=== PATIENT | female | born 1990 | race Caucasian/White ===

== ENCOUNTER 2018-02-17 16:52 | Outpatient (CLI) | payer OTHER | END 2018-02-17 19:00 | disposition home or self-care (01) | LOC: OBT 16:52 → L-D 16:53 → OBT 19:00 | DX: O26.892 Other specified pregnancy related conditions, second trimester (principal); Z3A.28 28 weeks gestation of pregnancy; R20.0 Anesthesia of skin | CPT/HCPCS: Z7500 ==

== ENCOUNTER 2018-03-11 10:30 | Inpatient (IN) | payer OTHER ==
[2018-03-11 12:30] LABS: ADD UMIC YES; UR AMORPHOUS CRYSTAL FEW /HPF (NONE SEEN); UR ASCORBIC ACID NEGATIVE (NEGATIVE); UR BACTERIA FEW /HPF (NONE SEEN); UR BILIRUBIN (Dip) NEGATIVE (NEGATIVE); UR BLOOD (Dip) NEGATIVE (NEGATIVE); UR CLARITY SLIGHTLY CLOUDY (CLEAR); UR COLOR YELLOW (YELLOW); UR GLUCOSE (Dip) NEGATIVE (NEGATIVE); UR KETONES (Dip) NEGATIVE (NEGATIVE); UR LEUKOCYTE ESTERASE (Dip) 1+ Leu/ul (NEGATIVE); UR MUCUS FEW /HPF (NONE SEEN); UR NITRITE (Dip) NEGATIVE (NEGATIVE); UR RBC 2 /HPF (0-5); UR SPECIFIC GRAVITY (Dip) 1.015 (1.003-1.030); UR SQUAMOUS EPITHELIAL CELL FEW /HPF (FEW); UR TOTAL PROTEIN (Dip) 3+ mg/dl (NEGATIVE); UR UROBILINOGEN (Dip) NEGATIVE (NEGATIVE); UR WBC 9 /HPF (0-5)
[2018-03-11] MEDS ORDERED: ACETAMINOPHEN 325 MG TAB PO (12:30)
[2018-03-11 12:38] LABS: ADD MAN DIFF? NO
[2018-03-11 12:41] LABS: WHITE BLOOD COUNT 8.3 10^3/ul (4.8-10.8)
[2018-03-11 12:41] LABS: ABNORMAL IP MESSAGE 1; BASOPHILS % 0.4 % (0.0-2.0); EOSINOPHILS % 0.5 % (0.0-7.0); HEMATOCRIT 36.7 % (37.0-47.0); HEMOGLOBIN 12.6 g/dl (12.0-16.0); LYMPHOCYTES % 24.5 % (15.0-51.0); MEAN CORPUSCULAR HEMOGLOBIN 32.6 pg (29.0-33.0); MEAN CORPUSCULAR HGB CONC 34.3 g/dl (32.0-37.0); MEAN CORPUSCULAR VOLUME 95.1 fl (82.0-101.0); MEAN PLATELET VOLUME 13.3 fl (7.4-10.4); MONOCYTE # 0.5 10^3/ul (0.3-0.9); MONOCYTES % 5.6 % (0.0-11.0); NEUTROPHIL # 5.7 10^3/ul (1.6-7.5); NEUTROPHILS % 68.4 % (39.0-77.0); PLATELET COUNT 118 10^3/UL (140-415); RED BLOOD COUNT 3.86 10^6/ul (4.20-5.40); RED CELL DISTRIBUTION WIDTH 12.9 % (11.5-14.5)
[2018-03-11 12:43] LABS: POSITIVE DIFF @See below
[2018-03-11 12:57] LABS: ALANINE AMINOTRANSFERASE 42 IU/L (13-69); ALBUMIN 3.1 g/dl (3.3-4.9); ALBUMIN/GLOBULIN RATIO 1.03; ALKALINE PHOSPHATASE 192 IU/L (42-121); ANION GAP 9 (8-16); ASPARTATE AMINO TRANSFERASE 32 IU/L (15-46); BILIRUBIN,INDIRECT 0.3 mg/dl (0-1.1); BILIRUBIN,TOTAL 0.3 mg/dl (0.2-1.3); BLOOD UREA NITROGEN 9 mg/dl (7-20); CALCIUM 8.6 mg/dl (8.4-10.2); CARBON DIOXIDE 22 mmol/L (21-31); CHLORIDE 110 mmol/L (97-110); CREATININE 0.59 mg/dl (0.44-1.00); GLUCOSE 73 mg/dl (70-220); POTASSIUM 4.1 mmol/L (3.5-5.1); SODIUM 137 mmol/L (135-144); TOTAL PROTEIN 6.1 g/dl (6.1-8.1); URIC ACID 5.5 mg/dl (3.1-7.9)
[2018-03-11 13:15] LABS: PARTIAL THROMBOPLASTIN TIME 26.8 Sec (25.0-35.0)
[2018-03-11 13:27] LABS: INR 0.93; PROTIME 12.6 Sec (11.9-14.9)
[2018-03-11] MEDS: ACCU-CHEK XX ×3 (13:30→22:26)
[2018-03-11] MEDS: BETAMET NA PHOS/AC(6 MG/ML) 5ML INJ IM (13:34)
[2018-03-11] MEDS: INSULIN ASPART [NOVOLOG] 3 ML PEN SC ×3 (17:30→20:13)
[2018-03-11] MEDS ORDERED: GLUCAGON 1 MG INJ IM ×2 (17:30)
[2018-03-11] MEDS ORDERED: DEXTROSE 50% 50 ML SYRINGE IV ×4 (17:30)
[2018-03-11] MEDS ORDERED: GLUCOSE GEL 15 GRAM TUBE PO ×4 (17:30)
[2018-03-11] MEDS ORDERED: GLUCOSE GEL 15 GRAM TUBE BUCCAL ×2 (17:30)
[2018-03-12] MEDS ORDERED: CARBOPROST 250 MCG INJ (07:00)
[2018-03-12] MEDS: ACCU-CHEK XX ×7 (08:10→22:08)
[2018-03-12] MEDS: PRENATAL VITAMIN PO (08:53)
[2018-03-12] MEDS: LACTATED RINGER'S 1,000 ML IV ×2 (10:31→17:40)
[2018-03-12 11:21] LABS: COLLECTION PERIOD 24 hrs
[2018-03-12] MEDS: INSULIN ASPART [NOVOLOG] 3 ML PEN SC ×2 (11:30→17:49)
[2018-03-12 11:50] LABS: COLLECTION PERIOD 24 hrs; SCRET 0.59 mg/dl (0.44-1.00); VOLUME 1325 ml/24hrs; VOLUME 1325 mls
[2018-03-12 11:59] LABS: CREATININE CLEARANCE 122.8 mls/min (84.0-162.0); CREATININE,URINE RANDOM 78.72 mg/dl (20-320)
[2018-03-12] MEDS: BETAMET NA PHOS/AC(6 MG/ML) 5ML INJ IM (12:33)
[2018-03-12 14:00] LABS: ADD MAN DIFF? NO
[2018-03-12 14:02] LABS: WHITE BLOOD COUNT 14.3 10^3/ul (4.8-10.8)
[2018-03-12 14:02] LABS: ABNORMAL IP MESSAGE 1; BASOPHILS % 0.1 % (0.0-2.0); HEMATOCRIT 38.4 % (37.0-47.0); LYMPHOCYTES # 2.2 10^3/ul (0.8-2.9); LYMPHOCYTES % 15.1 % (15.0-51.0); MEAN CORPUSCULAR HGB CONC 33.9 g/dl (32.0-37.0); MEAN CORPUSCULAR VOLUME 94.6 fl (82.0-101.0); MEAN PLATELET VOLUME 13.2 fl (7.4-10.4); MONOCYTE # 0.8 10^3/ul (0.3-0.9); MONOCYTES % 5.3 % (0.0-11.0); NEUTROPHIL # 11.2 10^3/ul (1.6-7.5); NEUTROPHILS % 78.2 % (39.0-77.0); NUCLEATED RED BLOOD CELLS # 0.1 10^3/ul (0.0-0.0); NUCLEATED RED BLOOD CELLS% 0.5 /100WBC (0.0-0.0); PLATELET COUNT 143 10^3/UL (140-415); RED BLOOD COUNT 4.06 10^6/ul (4.20-5.40); RED CELL DISTRIBUTION WIDTH 12.8 % (11.5-14.5)
[2018-03-12 14:03] LABS: POSITIVE DIFF @See below
[2018-03-13] MEDS: LACTATED RINGER'S 1,000 ML IV ×3 (01:11→17:10)
[2018-03-13] MEDS: INSULIN ASPART [NOVOLOG] 3 ML PEN SC ×3 (07:30→17:30)
[2018-03-13] MEDS: ACCU-CHEK XX ×8 (08:10→21:05)
[2018-03-13] MEDS: PRENATAL VITAMIN PO (09:32)
[2018-03-13 15:06] LABS: ADD MAN DIFF? NO
[2018-03-13 15:08] LABS: WHITE BLOOD COUNT 14.8 10^3/ul (4.8-10.8)
[2018-03-13 15:08] LABS: BASOPHILS % 0.3 % (0.0-2.0); EOSINOPHILS % 0.1 % (0.0-7.0); HEMATOCRIT 33.6 % (37.0-47.0); HEMOGLOBIN 11.3 g/dl (12.0-16.0); LYMPHOCYTES # 2.1 10^3/ul (0.8-2.9); LYMPHOCYTES % 14.2 % (15.0-51.0); MEAN CORPUSCULAR HEMOGLOBIN 32.4 pg (29.0-33.0); MEAN CORPUSCULAR HGB CONC 33.6 g/dl (32.0-37.0); MEAN CORPUSCULAR VOLUME 96.3 fl (82.0-101.0); MONOCYTES % 6.4 % (0.0-11.0); NEUTROPHILS % 74.5 % (39.0-77.0); NUCLEATED RED BLOOD CELLS # 0.1 10^3/ul (0.0-0.0); NUCLEATED RED BLOOD CELLS% 0.6 /100WBC (0.0-0.0); PLATELET COUNT 129 10^3/UL (140-415); RED BLOOD COUNT 3.49 10^6/ul (4.20-5.40); RED CELL DISTRIBUTION WIDTH 13.4 % (11.5-14.5)
[2018-03-13 15:25] LABS: ALANINE AMINOTRANSFERASE 36 IU/L (13-69); ALBUMIN 2.9 g/dl (3.3-4.9); ALKALINE PHOSPHATASE 161 IU/L (42-121); ANION GAP 14 (8-16); ASPARTATE AMINO TRANSFERASE 23 IU/L (15-46); BILIRUBIN,INDIRECT 0.1 mg/dl (0-1.1); BILIRUBIN,TOTAL 0.1 mg/dl (0.2-1.3); BLOOD UREA NITROGEN 12 mg/dl (7-20); CALCIUM 8.4 mg/dl (8.4-10.2); CARBON DIOXIDE 22 mmol/L (21-31); CHLORIDE 107 mmol/L (97-110); CREATININE 0.68 mg/dl (0.44-1.00); GLUCOSE 110 mg/dl (70-220); POTASSIUM 3.9 mmol/L (3.5-5.1); SODIUM 139 mmol/L (135-144); TOTAL PROTEIN 5.3 g/dl (6.1-8.1); URIC ACID 5.9 mg/dl (3.1-7.9)
[2018-03-14] MEDS: LACTATED RINGER'S 1,000 ML IV ×3 (01:14→22:15)
[2018-03-14] MEDS ORDERED: OXYTOCIN 30 UNITS/LR 500 ML BAG IV (07:00)
[2018-03-14] MEDS: ACCU-CHEK XX ×6 (08:10→19:05)
[2018-03-14] MEDS: INSULIN ASPART [NOVOLOG] 3 ML PEN SC ×3 (09:40→17:30)
[2018-03-14] MEDS: PRENATAL VITAMIN PO (09:42)
[2018-03-14] MEDS: MAGNESIUM SULFATE 4 GM/100 ML 100 ML IVPB (17:30)
[2018-03-14] MEDS: MAGNESIUM SULFATE 20 GM/500 ML 500 ML IV (17:37)
[2018-03-14 17:54] LABS: ADD MAN DIFF? NO
[2018-03-14 17:56] LABS: ABNORMAL IP MESSAGE 1; EOSINOPHILS % 0.1 % (0.0-7.0); HEMATOCRIT 35.1 % (37.0-47.0); NUCLEATED RED BLOOD CELLS # 0.1 10^3/ul (0.0-0.0); NUCLEATED RED BLOOD CELLS% 0.9 /100WBC (0.0-0.0); RED CELL DISTRIBUTION WIDTH 13.2 % (11.5-14.5)
[2018-03-14 18:03] LABS: WHITE BLOOD COUNT 14.6 10^3/ul (4.8-10.8)
[2018-03-14 18:03] LABS: BASOPHIL # 0.1 10^3/ul (0.0-0.1); BASOPHILS % 0.4 % (0.0-2.0); HEMOGLOBIN 11.9 g/dl (12.0-16.0); LYMPHOCYTES # 1.6 10^3/ul (0.8-2.9); LYMPHOCYTES % 10.9 % (15.0-51.0); MEAN CORPUSCULAR HEMOGLOBIN 32.5 pg (29.0-33.0); MEAN CORPUSCULAR HGB CONC 33.9 g/dl (32.0-37.0); MEAN CORPUSCULAR VOLUME 95.9 fl (82.0-101.0); MEAN PLATELET VOLUME 13.7 fl (7.4-10.4); MONOCYTE # 0.7 10^3/ul (0.3-0.9); MONOCYTES % 4.4 % (0.0-11.0); NEUTROPHIL # 11.8 10^3/ul (1.6-7.5); NEUTROPHILS % 80.9 % (39.0-77.0); PLATELET COUNT 102 10^3/UL (140-415); RED BLOOD COUNT 3.66 10^6/ul (4.20-5.40)
[2018-03-14 18:04] LABS: POSITIVE DIFF @See below
[2018-03-14 18:14] LABS: ALANINE AMINOTRANSFERASE 37 IU/L (13-69); ALBUMIN/GLOBULIN RATIO 1.25; ALKALINE PHOSPHATASE 172 IU/L (42-121); ANION GAP 13 (8-16); ASPARTATE AMINO TRANSFERASE 34 IU/L (15-46); BILIRUBIN,INDIRECT 0.2 mg/dl (0-1.1); BILIRUBIN,TOTAL 0.2 mg/dl (0.2-1.3); BLOOD UREA NITROGEN 11 mg/dl (7-20); CALCIUM 8.6 mg/dl (8.4-10.2); CARBON DIOXIDE 24 mmol/L (21-31); CHLORIDE 106 mmol/L (97-110); CREATININE 0.59 mg/dl (0.44-1.00); GLUCOSE 82 mg/dl (70-220); POTASSIUM 3.8 mmol/L (3.5-5.1); SODIUM 139 mmol/L (135-144); TOTAL PROTEIN 5.4 g/dl (6.1-8.1)
[2018-03-14 18:15] LABS: URIC ACID 5.9 mg/dl (3.1-7.9)
[2018-03-14 18:18] LABS: INR 0.87; PROTIME 11.9 Sec (11.9-14.9); PT RATIO 0.9
[2018-03-14 18:19] LABS: PARTIAL THROMBOPLASTIN TIME 22.8 Sec (25.0-35.0)
[2018-03-14] MEDS: CEFAZOLIN 2 GM/50 ML (PMX) 50 ML IVPB (18:30)
[2018-03-14 18:44] LABS: HEPATITIS B SURFACE ANTIGEN NEGATIVE (NEGATIVE)
[2018-03-14] MEDS: FAMOTIDINE 20 MG INJ IV (19:31)
[2018-03-14] MEDS: METOCLOPRAMIDE 10 MG INJ IV (19:31)
[2018-03-14] MEDS: CITRIC ACID/SODIUM CITRATE 15 ML CUP PO (19:31)
[2018-03-14] MEDS ORDERED: FENTAnyl 50 MCG/ML VIAL (20:17)
[2018-03-14] MEDS ORDERED: morphine SULFATE/PF (10 MG/10 ML) INJ (20:17)
[2018-03-14] MEDS ORDERED: BUPIVACAINE 0.75%/DEXT (SPINAL) 2 ML INJ (20:17)
[2018-03-14] MEDS ORDERED: EPHEDrine SULFATE 50 MG/5 ML SYG (20:21)
[2018-03-14] MEDS ORDERED: PHENYLephrine (100 MCG/ML) 10ML SYG (20:21)
[2018-03-14] MEDS ORDERED: DEXAMETHASONE 4 MG/ML 1 ML INJ (20:34)
[2018-03-14] MEDS ORDERED: ONDANSETRON 4 MG INJ (20:34)
[2018-03-14] MEDS ORDERED: LABETALOL HCL 20MG INJ ×3 (20:40→22:44)
[2018-03-14] MEDS ORDERED: MIDAZOLAM 1 MG/ML 2 ML INJ (21:15)
[2018-03-14] MEDS: LABETALOL HCL 20MG INJ IV ×2 (22:15→22:45)
[2018-03-14] MEDS ORDERED: HYDROmorphONE 0.5 MG/0.5 ML SYG IV ×2 (23:30)
[2018-03-14] MEDS ORDERED: DIPHENHYDRAMINE 50 MG INJ IV (23:30)
[2018-03-14] MEDS ORDERED: NALOXONE (0.4 MG/ML) INJ IV (23:30)
[2018-03-14] MEDS ORDERED: ONDANSETRON 4 MG INJ IV (23:30)
[2018-03-14] MEDS ORDERED: NALBUPHINE HCL (10 MG/1 ML) INJ IV (23:30)
[2018-03-15 01:46] LABS: MAGNESIUM 5.6 mg/dl (1.7-2.5)
[2018-03-15] MEDS ORDERED: FUROSEMIDE 40 MG INJ (02:05)
[2018-03-15] MEDS: FUROSEMIDE 40 MG INJ IM (02:10)
[2018-03-15] MEDS: MAGNESIUM SULFATE 20 GM/500 ML 500 ML IV ×3 (03:10→20:15)
[2018-03-15] MEDS: OXYTOCIN 30 UNITS/LR 500 ML IV (04:40)
[2018-03-15 06:44] LABS: MAGNESIUM 6.5 mg/dl (1.7-2.5)
[2018-03-15 08:46] LABS: ADD MAN DIFF? NO
[2018-03-15 08:47] LABS: ABNORMAL IP MESSAGE 1; NUCLEATED RED BLOOD CELLS # 0.2 10^3/ul (0.0-0.0); RED CELL DISTRIBUTION WIDTH 13.2 % (11.5-14.5)
[2018-03-15 09:07] LABS: WHITE BLOOD COUNT 16.8 10^3/ul (4.8-10.8)
[2018-03-15 09:07] LABS: BASOPHILS % 0.2 % (0.0-2.0); HEMATOCRIT 32.6 % (37.0-47.0); HEMOGLOBIN 10.9 g/dl (12.0-16.0); LYMPHOCYTES # 1.1 10^3/ul (0.8-2.9); LYMPHOCYTES % 6.7 % (15.0-51.0); MEAN CORPUSCULAR HGB CONC 33.4 g/dl (32.0-37.0); MEAN CORPUSCULAR VOLUME 95.6 fl (82.0-101.0); MONOCYTE # 0.5 10^3/ul (0.3-0.9); MONOCYTES % 2.9 % (0.0-11.0); NEUTROPHIL # 14.9 10^3/ul (1.6-7.5); NEUTROPHILS % 88.2 % (39.0-77.0); PLATELET COUNT 72 10^3/UL (140-415); RED BLOOD COUNT 3.41 10^6/ul (4.20-5.40)
[2018-03-15 09:20] LABS: POSITIVE DIFF @See below
[2018-03-15] MEDS ORDERED: LANOLIN 7 GM TUBE TOP (10:30)
[2018-03-15] MEDS ORDERED: DIPHENHYDRAMINE 50 MG INJ IV (10:30)
[2018-03-15] MEDS ORDERED: ZOLPIDEM 5 MG TAB PO (10:30)
[2018-03-15] MEDS ORDERED: OXYCODONE/ACETAMINOPHEN (5/325) TAB PO ×2 (10:30)
[2018-03-15] MEDS ORDERED: ONDANSETRON 4 MG INJ IV (10:30)
[2018-03-15] MEDS ORDERED: CARBOPROST 250 MCG INJ IM (10:30)
[2018-03-15] MEDS ORDERED: OXYTOCIN 30 UNITS/LR 500 ML IV (10:30)
[2018-03-15] MEDS ORDERED: MISOPROSTOL 200 MCG TAB PR (10:30)
[2018-03-15 13:33] LABS: ADD MAN DIFF? NO
[2018-03-15 13:34] LABS: WHITE BLOOD COUNT 14.8 10^3/ul (4.8-10.8)
[2018-03-15 13:34] LABS: ABNORMAL IP MESSAGE 1; BASOPHILS % 0.1 % (0.0-2.0); HEMATOCRIT 30.7 % (37.0-47.0); HEMOGLOBIN 10.6 g/dl (12.0-16.0); LYMPHOCYTES # 1.6 10^3/ul (0.8-2.9); LYMPHOCYTES % 10.8 % (15.0-51.0); MEAN CORPUSCULAR HEMOGLOBIN 32.6 pg (29.0-33.0); MEAN CORPUSCULAR HGB CONC 34.5 g/dl (32.0-37.0); MEAN CORPUSCULAR VOLUME 94.5 fl (82.0-101.0); MEAN PLATELET VOLUME 12.8 fl (7.4-10.4); MONOCYTE # 0.7 10^3/ul (0.3-0.9); MONOCYTES % 4.6 % (0.0-11.0); NEUTROPHIL # 12.3 10^3/ul (1.6-7.5); NEUTROPHILS % 83.1 % (39.0-77.0); NUCLEATED RED BLOOD CELLS # 0.1 10^3/ul (0.0-0.0); NUCLEATED RED BLOOD CELLS% 0.7 /100WBC (0.0-0.0); PLATELET COUNT 63 10^3/UL (140-415); RED BLOOD COUNT 3.25 10^6/ul (4.20-5.40); RED CELL DISTRIBUTION WIDTH 13.2 % (11.5-14.5)
[2018-03-15 13:38] LABS: POSITIVE DIFF @See below
[2018-03-15 13:58] LABS: MAGNESIUM 6.9 mg/dl (1.7-2.5)
[2018-03-15] MEDS: LACTATED RINGER'S 1,000 ML IV ×2 (15:10→20:15)
[2018-03-15] MEDS: LABETALOL 100 MG TAB PO ×2 (15:25→21:36)
[2018-03-15 19:12] LABS: ADD MAN DIFF? NO
[2018-03-15 19:14] LABS: WHITE BLOOD COUNT 14.3 10^3/ul (4.8-10.8)
[2018-03-15 19:14] LABS: ABNORMAL IP MESSAGE 1; BASOPHILS % 0.1 % (0.0-2.0); HEMATOCRIT 32.7 % (37.0-47.0); HEMOGLOBIN 11.3 g/dl (12.0-16.0); LYMPHOCYTES # 1.9 10^3/ul (0.8-2.9); LYMPHOCYTES % 13.5 % (15.0-51.0); MEAN CORPUSCULAR HEMOGLOBIN 32.6 pg (29.0-33.0); MEAN CORPUSCULAR HGB CONC 34.6 g/dl (32.0-37.0); MEAN CORPUSCULAR VOLUME 94.2 fl (82.0-101.0); MONOCYTE # 0.7 10^3/ul (0.3-0.9); NEUTROPHIL # 11.4 10^3/ul (1.6-7.5); NEUTROPHILS % 79.9 % (39.0-77.0); NUCLEATED RED BLOOD CELLS # 0.1 10^3/ul (0.0-0.0); NUCLEATED RED BLOOD CELLS% 0.6 /100WBC (0.0-0.0); PLATELET COUNT 77 10^3/UL (140-415); RED BLOOD COUNT 3.47 10^6/ul (4.20-5.40); RED CELL DISTRIBUTION WIDTH 13.2 % (11.5-14.5)
[2018-03-15 19:25] LABS: POSITIVE DIFF @See below
[2018-03-15 19:41] LABS: MAGNESIUM 6.4 mg/dl (1.7-2.5)
[2018-03-15] MEDS: KETOROLAC 30 MG INJ IV (19:55)
[2018-03-15] MEDS: CEFAZOLIN 2 GM/50 ML (PMX) 50 ML IVPB (19:55)
[2018-03-15 20:07] LABS: RAPID PLASMA REAGIN NONREACTIVE (NR)
[2018-03-15] MEDS: SENNA/DOCUSATE NA (8.6MG/50MG) TAB PO (21:36)
[2018-03-16] MEDS: IBUPROFEN 600 MG TAB PO ×4 (00:07→18:00)
[2018-03-16] MEDS: LACTATED RINGER'S 1,000 ML IV ×3 (02:05→18:05)
[2018-03-16] MEDS: OXYTOCIN 30 UNITS/LR 500 ML IV ×6 (04:00→20:00)
[2018-03-16] MEDS: MAGNESIUM SULFATE 20 GM/500 ML 500 ML IV ×2 (05:49→15:49)
[2018-03-16] MEDS: SENNA/DOCUSATE NA (8.6MG/50MG) TAB PO ×2 (09:00→21:57)
[2018-03-16] MEDS: LABETALOL 100 MG TAB PO ×2 (09:00→21:58)
[2018-03-16 13:23] LABS: MAGNESIUM 3.7 mg/dl (1.7-2.5)
[2018-03-17] MEDS: IBUPROFEN 600 MG TAB PO ×5 (00:13→23:46)
[2018-03-17] MEDS: MAGNESIUM SULFATE 20 GM/500 ML 500 ML IV (01:49)
[2018-03-17] MEDS: LACTATED RINGER'S 1,000 ML IV ×2 (02:05→11:40)
[2018-03-17] MEDS: OXYTOCIN 30 UNITS/LR 500 ML IV ×3 (04:00→11:39)
[2018-03-17] MEDS: LABETALOL 100 MG TAB PO ×2 (09:12→20:36)
[2018-03-17] MEDS: SENNA/DOCUSATE NA (8.6MG/50MG) TAB PO ×2 (09:13→20:36)
[2018-03-18] MEDS: IBUPROFEN 600 MG TAB PO ×2 (05:42→12:43)
[2018-03-18] MEDS: SENNA/DOCUSATE NA (8.6MG/50MG) TAB PO (08:49)
[2018-03-18] MEDS: LABETALOL 100 MG TAB PO (08:50)
[2018-03-18] MEDS: DIPHTH/TET/ACEL PERTUSS (ADULT) 0.5 ML VIAL IM* (11:34)
== END 2018-03-18 15:10 | disposition home or self-care (01) | DRG 766 ==
LOC: OBT 10:30 → PP1 03-15 09:38 → L-D 10:30 → OBT 11:25 → L-D 11:25 → PP1 14:00 → L-D 03-14 20:03
PROC: 10D00Z1 Extraction of Products of Conception, Low, Open Approach (ICD-10-PCS; principal; 2018-03-14)
DX: O14.14 Severe pre-eclampsia complicating childbirth (principal); O24.420 Gestational diabetes mellitus in childbirth, diet controlled; Z37.0 Single live birth; Z3A.31 31 weeks gestation of pregnancy
CPT/HCPCS: 76815; 76818; 80053; 81001; 82575; 82962; 83735; 84156; 84560; 85025; 85384; 85610; 85730; 86592; 86850; 86900; 86901; 87340; 88307; 90715; 99464

== ENCOUNTER 2018-03-24 12:50 | Emergency (ER) | payer OTHER | END 2018-03-24 14:40 | disposition home or self-care (01) | LOC: FTE 12:50 | DX: O90.89 Other complications of the puerperium, not elsewhere classified (principal); L76.34 Postprocedural seroma of skin and subcutaneous tissue following other procedure | CPT/HCPCS: 99283; Z7502 ==

== ENCOUNTER 2018-04-08 01:07 | Inpatient (IN) | payer OTHER, MEDICAID ==
[2018-04-08] MEDS: ONDANSETRON 4 MG INJ IV (02:51)
[2018-04-08] MEDS: LACTATED RINGER'S 1,000 ML IV ×3 (02:51→21:16)
[2018-04-08] MEDS: morphine 4 MG/ML VIAL IV (02:51)
[2018-04-08] MEDS: KETOROLAC 30 MG INJ IV (02:52)
[2018-04-08 03:01] LABS: ADD MAN DIFF? NO
[2018-04-08 03:03] LABS: BASOPHIL # 0.1 10^3/ul (0.0-0.1); BASOPHILS % 0.4 % (0.0-2.0); EOSINOPHILS # 0.1 10^3/ul (0.0-0.5); EOSINOPHILS % 0.7 % (0.0-7.0); HEMATOCRIT 38.2 % (37.0-47.0); HEMOGLOBIN 12.6 g/dl (12.0-16.0); LYMPHOCYTES # 1.4 10^3/ul (0.8-2.9); LYMPHOCYTES % 8.3 % (15.0-51.0); MEAN CORPUSCULAR HEMOGLOBIN 32.1 pg (29.0-33.0); MEAN CORPUSCULAR VOLUME 97.4 fl (82.0-101.0); MEAN PLATELET VOLUME 10.2 fl (7.4-10.4); MONOCYTE # 1.1 10^3/ul (0.3-0.9); MONOCYTES % 6.5 % (0.0-11.0); NEUTROPHIL # 14.3 10^3/ul (1.6-7.5); NEUTROPHILS % 83.7 % (39.0-77.0); PLATELET COUNT 299 10^3/UL (140-415); RED BLOOD COUNT 3.92 10^6/ul (4.20-5.40); RED CELL DISTRIBUTION WIDTH 12.5 % (11.5-14.5)
[2018-04-08 03:03] LABS: WHITE BLOOD COUNT 17.1 10^3/ul (4.8-10.8)
[2018-04-08 03:27] LABS: ADD UMIC YES; UR ASCORBIC ACID NEGATIVE (NEGATIVE); UR BACTERIA FEW /HPF (NONE SEEN); UR BILIRUBIN (Dip) NEGATIVE (NEGATIVE); UR BLOOD (Dip) 1+ mg/dL (NEGATIVE); UR CLARITY CLEAR (CLEAR); UR COLOR YELLOW (YELLOW); UR GLUCOSE (Dip) NEGATIVE (NEGATIVE); UR KETONES (Dip) TRACE mg/dL (NEGATIVE); UR LEUKOCYTE ESTERASE (Dip) NEGATIVE Leu/ul (NEGATIVE); UR MUCUS FEW /HPF (NONE SEEN); UR NITRITE (Dip) NEGATIVE (NEGATIVE); UR NONSQUAMOUS EPITHELIAL CELL 1 /HPF (NONE SEEN); UR RBC 16 /HPF (0-5); UR SPECIFIC GRAVITY (Dip) 1.032 (1.003-1.030); UR SQUAMOUS EPITHELIAL CELL FEW /HPF (FEW); UR TOTAL PROTEIN (Dip) 2+ mg/dl (NEGATIVE); UR UROBILINOGEN (Dip) NEGATIVE (NEGATIVE); UR WBC 5 /HPF (0-5)
[2018-04-08 03:43] LABS: ALANINE AMINOTRANSFERASE 32 IU/L (13-69); ALBUMIN 4.2 g/dl (3.3-4.9); ALBUMIN/GLOBULIN RATIO 1.31; ALKALINE PHOSPHATASE 129 IU/L (42-121); ANION GAP 17 (8-16); ASPARTATE AMINO TRANSFERASE 22 IU/L (15-46); BILIRUBIN,INDIRECT 0.4 mg/dl (0-1.1); BILIRUBIN,TOTAL 0.4 mg/dl (0.2-1.3); BLOOD UREA NITROGEN 14 mg/dl (7-20); CARBON DIOXIDE 27 mmol/L (21-31); CHLORIDE 103 mmol/L (97-110); CREATININE 0.67 mg/dl (0.44-1.00); GLUCOSE 125 mg/dl (70-220); LIPASE 31 U/L (23-300); POTASSIUM 3.8 mmol/L (3.5-5.1); SODIUM 143 mmol/L (135-144); TOTAL PROTEIN 7.4 g/dl (6.1-8.1)
[2018-04-08] MEDS: CEFEPIME 2GM/50 ML (PMX) 50 ML IVPB ×2 (05:12→21:15)
[2018-04-08] MEDS: SODIUM CHLORIDE 0.9% 1L BAG IV* (05:12)
[2018-04-08 05:32] LABS: LACTIC ACID 1.2 mmol/L (0.5-2.0)
[2018-04-08 06:03] LABS: TROPONIN-I < 0.010 ng/ml (0.000-0.120)
[2018-04-08 07:41] LABS: LACTIC ACID 1.2 mmol/L (0.5-2.0)
[2018-04-08] MEDS ORDERED: ONDANSETRON 4 MG INJ IV ×2 (09:00→11:00)
[2018-04-08] MEDS ORDERED: morphine 4 MG/ML VIAL IV (09:00)
[2018-04-08] MEDS: ACETAMINOPHEN 325 MG TAB PO ×2 (09:19→21:14)
[2018-04-08 09:48] LABS: LACTIC ACID 0.8 mmol/L (0.5-2.0)
[2018-04-08] MEDS ORDERED: VANCOMYCIN IV PER PHARMACY XX (10:30)
[2018-04-08] MEDS ORDERED: MAGNESIUM HYDROXIDE 30ML CUP PO (11:00)
[2018-04-08] MEDS ORDERED: BISACODYL 10 MG SUPP PR (11:00)
[2018-04-08] MEDS ORDERED: DOCUSATE SODIUM 100 MG CAP PO (11:00)
[2018-04-08] MEDS ORDERED: HYDROCODONE/APAP (5/325) TAB PO ×2 (11:00)
[2018-04-08] MEDS ORDERED: morphine 2 MG INJ IV (11:00)
[2018-04-08] MEDS ORDERED: ACETAMINOPHEN 650 MG SUPP PR (11:00)
[2018-04-08] MEDS ORDERED: NACL 0.9% 3 ML SYG IV (11:00)
[2018-04-08] MEDS: VANCOMYCIN 1 GM 250 ML IVPB (11:03)
[2018-04-08] MEDS: VANCOMYCIN 750 MG in SOD CHLORIDE 0.9% 150 ML IVPB (21:03)
[2018-04-09] MEDS: LACTATED RINGER'S 1,000 ML IV (03:17)
[2018-04-09] MEDS: VANCOMYCIN 750 MG in SOD CHLORIDE 0.9% 150 ML IVPB ×2 (05:32→12:13)
[2018-04-09] MEDS: PANTOPRAZOLE 40 MG INJ IV (05:32)
[2018-04-09] MEDS: CEFEPIME 2GM/50 ML (PMX) 50 ML IVPB ×2 (08:03→20:24)
[2018-04-09 09:14] LABS: ADD MAN DIFF? NO
[2018-04-09 09:22] LABS: WHITE BLOOD COUNT 17.3 10^3/ul (4.8-10.8)
[2018-04-09 09:22] LABS: BASOPHIL # 0.1 10^3/ul (0.0-0.1); BASOPHILS % 0.3 % (0.0-2.0); EOSINOPHILS # 0.3 10^3/ul (0.0-0.5); EOSINOPHILS % 1.7 % (0.0-7.0); HEMATOCRIT 34.4 % (37.0-47.0); LYMPHOCYTES # 2.3 10^3/ul (0.8-2.9); LYMPHOCYTES % 13.2 % (15.0-51.0); MEAN CORPUSCULAR HEMOGLOBIN 31.4 pg (29.0-33.0); MEAN CORPUSCULAR VOLUME 98.3 fl (82.0-101.0); MEAN PLATELET VOLUME 10.7 fl (7.4-10.4); MONOCYTE # 0.6 10^3/ul (0.3-0.9); MONOCYTES % 3.7 % (0.0-11.0); NEUTROPHILS % 80.8 % (39.0-77.0); PLATELET COUNT 254 10^3/UL (140-415)
[2018-04-09 09:51] LABS: ALANINE AMINOTRANSFERASE 30 IU/L (13-69); ALBUMIN 3.3 g/dl (3.3-4.9); ALBUMIN/GLOBULIN RATIO 1.13; ALKALINE PHOSPHATASE 96 IU/L (42-121); ANION GAP 13 (8-16); ASPARTATE AMINO TRANSFERASE 21 IU/L (15-46); BILIRUBIN,INDIRECT 0.4 mg/dl (0-1.1); BILIRUBIN,TOTAL 0.4 mg/dl (0.2-1.3); BLOOD UREA NITROGEN 8 mg/dl (7-20); CALCIUM 8.5 mg/dl (8.4-10.2); CARBON DIOXIDE 23 mmol/L (21-31); CHLORIDE 107 mmol/L (97-110); CHOL/HDL RATIO 3.4 RATIO; CHOLESTEROL 164 mg/dl (100-200); CREATININE 0.52 mg/dl (0.44-1.00); GLUCOSE 72 mg/dl (70-220); HDL CHOLESTEROL 48 mg/dl (33-83); LDL CHOLESTEROL,CALCULATED 91 mg/dl; MAGNESIUM 1.9 mg/dl (1.7-2.5); PHOSPHORUS 3.4 mg/dl (2.5-4.9); POTASSIUM 3.5 mmol/L (3.5-5.1); SODIUM 139 mmol/L (135-144); TOTAL PROTEIN 6.2 g/dl (6.1-8.1); TRIGLYCERIDES 124 mg/dl (0-149)
[2018-04-09 11:17] LABS: FREE THYROXINE INDEX (Calc) 2.39 ug/ml (0.65-3.89); T3 UPTAKE 32.7 % (23.5-40.5); T4 (THYROXINE) 7.3 ug/dl (5.5-11.0)
[2018-04-09 11:28] LABS: THYROID STIMULATING HORMONE 0.923 MIU/L (0.465-4.680)
[2018-04-09 11:36] LABS: VANCOMYCIN,TROUGH 12.9 ug/ml (10.0-20.0)
[2018-04-09 11:44] LABS: HEMOGLOBIN A1C 5.3 % (0-5.9)
[2018-04-09] MEDS: ACETAMINOPHEN 325 MG TAB PO (20:24)
[2018-04-10] MEDS: PANTOPRAZOLE 40 MG INJ IV (05:38)
[2018-04-10] MEDS: CEFEPIME 2GM/50 ML (PMX) 50 ML IVPB (08:05)
[2018-04-10 11:16] LABS: ADD MAN DIFF? NO
[2018-04-10 11:27] LABS: BASOPHILS % 0.4 % (0.0-2.0); EOSINOPHILS # 0.3 10^3/ul (0.0-0.5); EOSINOPHILS % 2.2 % (0.0-7.0); HEMATOCRIT 36.3 % (37.0-47.0); HEMOGLOBIN 11.8 g/dl (12.0-16.0); LYMPHOCYTES # 2.1 10^3/ul (0.8-2.9); LYMPHOCYTES % 18.3 % (15.0-51.0); MEAN CORPUSCULAR HEMOGLOBIN 31.8 pg (29.0-33.0); MEAN CORPUSCULAR HGB CONC 32.5 g/dl (32.0-37.0); MEAN CORPUSCULAR VOLUME 97.8 fl (82.0-101.0); MEAN PLATELET VOLUME 10.3 fl (7.4-10.4); MONOCYTE # 0.6 10^3/ul (0.3-0.9); MONOCYTES % 5.3 % (0.0-11.0); NEUTROPHIL # 8.2 10^3/ul (1.6-7.5); NEUTROPHILS % 73.4 % (39.0-77.0); PLATELET COUNT 283 10^3/UL (140-415); RED BLOOD COUNT 3.71 10^6/ul (4.20-5.40); RED CELL DISTRIBUTION WIDTH 12.6 % (11.5-14.5)
[2018-04-10 11:27] LABS: WHITE BLOOD COUNT 11.2 10^3/ul (4.8-10.8)
[2018-04-10 11:35] LABS: ANION GAP 13 (8-16); BLOOD UREA NITROGEN 8 mg/dl (7-20); CARBON DIOXIDE 25 mmol/L (21-31); CHLORIDE 107 mmol/L (97-110); CREATININE 0.61 mg/dl (0.44-1.00); GLUCOSE 122 mg/dl (70-220); POTASSIUM 3.6 mmol/L (3.5-5.1); SODIUM 141 mmol/L (135-144)
[2018-04-10] MEDS: GENTAMICIN 120 MG/NS (PMX) 100 ML IVPB (14:19)
[2018-04-11] MEDS ORDERED: CIPROFLOXACIN 500 MG TAB PO (09:00)
== END 2018-04-10 15:50 | disposition home or self-care (01) | DRG 776 ==
LOC: E/R 01:07 → MS4 06:13
DX: O85 Puerperal sepsis (principal); O86.20 Urinary tract infection following delivery, unspecified
CPT/HCPCS: 36415; 71045; 74176; 80048; 80053; 80061; 80202; 81001; 83036; 83605; 83690; 83735; 84100; 84436; 84443; 84479; 84484; 85025; 87040; 87086; 93005; 96374; 96375; 99291-25